=== PATIENT | female | born 1970 | race Caucasian/White ===

== ENCOUNTER 2019-07-14 07:59 | Day surgery (SDC) | payer OTHER, SELFPAY ==
[2019-07-10 15:02] VITALS: BMI 23.9
--- NOTE | 2019-07-14 | PATH_ITS ---
[facility] Accession Number: [id number] . 01 Material submitted: . PART A: cervix - EXTERNAL CERVICAL TISSUE PART B: cervix - INTERNAL CERVICAL TISSUE PART C: endocervix - ENDOCERVICAL CURETTINGS . 02 Diagnosis: A. External Cervix, LEEP: Cervical transformation zone with focal high-grade squamous intraepithelial lesion (BELKIS 2-3) involving a single endocervical gland in a background of low-grade squamous intraepithelial lesion (BELKIS-1). BELKIS 2-3 is free of the endocervical margin by 0.1 cm. Negative for malignancy. . B. Internal Cervix, LEEP: Endocervical mucosa with no diagnostic abnormality. Negative for squamous intraepithelial lesion or malignancy. . C. Endocervix, Curettage: Squamous epithelium, endocervical epithelium, and weakly proliferative endometrium with no diagnostic abnormality. No evidence of neoplasm. [facility] 07/18/2019 1312 Local . 02 Comment: The findings in this case correlate with recent cervical cytology ([id number]). . 02 Electronically signed: . Chandu Barreto MD, PhD, Pathologist NPI- [id number] . 01 Gross description: . This is a three-part case, each container is labeled with the patient's information: . A. Received in a formalin-filled container labeled external cervical tissue, stitch at 12 o'clock and consists of a pink-olivo, smooth, cauterized, oriented, intact, 2.3 x 2.0 x 0.8 cm soft tissue consistent with a LEEP specimen. There is a single black suture present which, per requisition, designates 12 o'clock. The endocervical margin is inked orange and the remaining cauterized surfaces are inked green. Sectioning reveals pink-olivo, grossly unremarkable cut surfaces. The specimen is entirely sequentially submitted as follows: A1 - cervix, 12-3 o'clock; A2 - cervix, 3-6 o'clock; A3 - cervix, 6-9 o'clock; A4 - cervix, 9-12 o'clock. B. Received in a formalin-filled container labeled internal cervical tissue and consists of two olivo to pink-olivo, diffusely cauterized unoriented soft tissue fragments - 1: 1.1 cm, 2: 2.0 cm. The cauterized surfaces are inked blue. Sectioning reveals pink-olivo, grossly unremarkable cut surfaces. The specimen is sectioned and entirely submitted as follows: B1 - smaller tissue fragment, prior dissected and entirely submitted; B2-B3 - larger tissue fragment, sectioned and entirely submitted. C. Received in a formalin-filled container labeled endocervical curettings and consists of multiple olivo-brown, minute, soft tissue fragments mixed with blood clot - 2.5 x 1.0 x 0.3 cm in aggregate. The specimen is submitted in toto in cassette C1.([id number]) /R 07/15/2019 1026 Local . 02 Microscopic: . A p16 immunohistochemical stain is performed on block A4 to evaluate for a high risk HPV driven neoplasm, and highlights a focus of atypical squamous epithelium involving a single endocervical gland showing diffuse block-like nuclear and cytoplasmic immunoreactivity. A control stain shows appropriate reactivity. . * This test was developed and its performance characteristics determined by [facility]. It has not been cleared or approved by the [place]. Food and Drug Administration. The FDA has determined that such clearance or approval is not necessary. This test is used for clinical purposes. It should not be regarded as investigational or for research. . 02 Pathologist provided ICD-10: N87.1 . 02 CPT . 965406, 588615, 507613, [id number] Performed at: 01 [facility] [address], [place], [place] [id number] MD José Miguel Nicolas MD Phone: [phone] Performed at: 02 [facility] [place] [address] [place], [place] [id number] MD Sydney Romo MD Phone: [phone]
[2019-07-14 08:16] VITALS: BMI 23.5
[2019-07-14 08:21] VITALS: BP 116/75; PULSE 75; RESP 15; TEMP 36.5; O2SAT 100
[2019-07-14] MEDS: LACTATED RINGERS 1,000 ML 42 ML IV (08:32)
--- NOTE | 2019-07-14 08:43 | PM.PREOP ---
Pre-operative Note Interval Note History & Physical reviewed/Exam performed by Physician: Yes Changes to H&P: No H&P completed within 30 days and has changed as indicated here:: See outpatient note from 07/06/2019
[2019-07-14] MEDS: BUPIVACAINE 0.5% W/ EPI (PF) VIAL 30 ML INJ (09:11)
--- NOTE | 2019-07-14 09:15 | SUR.OPER ---
Lithotomy on padded OR bed, head on pillow, arms secured on padded arm boards at <90 degrees abduction. Legs secured in padded yellow fins stirrups.
[2019-07-14 09:30] VITALS: BP 107/66; PULSE 70; RESP 12; TEMP 36.7; O2SAT 99
[2019-07-14] MEDS: POTASSIUM IODIDE/IODINE 473 ML SOLUTION TOP (09:30)
--- NOTE | 2019-07-14 09:33 | PM.OP.1 ---
Operative Date/Time/Diagnoses Date of procedure: 07/14/19 Time of procedure: 09:33 Pre-op diagnosis: High-grade dysplasia of the cervix Post-op diagnosis: same Procedure & Clinicians Procedure: LEEP with ECC Same procedure as scheduled: Yes Indications: High-grade dysplasia of the cervix Surgeon: Cheyenne Chen Click Yes if Unassisted: Yes Anesthesia Type: General Operative Notes Findings: No abnormal staining areas of the cervix Closure Type: primary Estimated Blood Loss (mL): 1 Blood products transfused: none Procedure in detail: Patient was brought to the operating room she underwent general. She was placed in low stirrups. A coated bivalve speculum was placed into the vagina. The cervix was injected with 0.5% Marcaine with epinephrine. A coated single-tooth tenaculum was placed on the anterior lip of the cervix. The cervix was stained with Lugol's. The loop set at 60 W of cutting was used to remove the entire squamocolumnar junction. A slightly deeper section was taken of the endocervical canal. An ECC was performed. The tissue was cauterized external to the LEEP with ball cautery to extend the treatment zone. Monsel's was placed. The patient went to recovery room in good condition. Counts of instruments and sponges were correct. The tissue was sent for pathology. Complications: none Post-operative Condition: stable Disposition: same day surgery Plan for aftercare: Nothing in vagina for 2 weeks treatment and follow-up based on biopsy results
[2019-07-14 09:35] VITALS: BP 108/65; PULSE 70; RESP 14; O2SAT 98
[2019-07-14 09:45] VITALS: BP 120/72; PULSE 65; RESP 13; TEMP 36.5; O2SAT 99
[2019-07-14 09:53] VITALS: BP 122/71; PULSE 61; RESP 15; TEMP 36.1; O2SAT 100
[2019-07-14 10:03] VITALS: BP 121/72; PULSE 62; RESP 14; O2SAT 100
== END 2019-07-14 10:06 | disposition home or self-care (01) ==
PROVIDERS: Visit Provider Specialist
PROC: 0UBC7ZZ Excision of Cervix, Via Natural or Artificial Opening (ICD-10-PCS; CPT 57522; principal; 2019-07-14 09:15)
DX: N87.1 Moderate cervical dysplasia (principal)
CPT/HCPCS: 57522; J1100; J2405; J2704; J3010